=== PATIENT | male | born 1955 | race Hispanic/Latino ===

== ENCOUNTER 2022-02-25 17:44 | Emergency (ER) | payer MEDICAID | END 2022-02-25 18:23 | disposition home or self-care (01) | LOC: MADERS 17:44 | DX: Z76.0 Encounter for issue of repeat prescription (principal); E78.5 Hyperlipidemia, unspecified; I10 Essential (primary) hypertension; Z79.899 Other long term (current) drug therapy | CPT/HCPCS: 99281 ==